=== PATIENT | male | born 1965 | race Caucasian/White ===

== ENCOUNTER 2016-10-11 07:07 | Day surgery (SDC) | payer MEDICARE ==
[~2016-10-11] VITALS: Ht 175.3 cm; Wt 109.4 kg
[2016-10-11 07:45] VITALS: BP 139/96; PULSE 70; TEMP 98.3
[2016-10-11] MEDS ORDERED: NORCO 325 MG-101 TAB PO (07:48)
[2016-10-11] MEDS ORDERED: LEXAPRO 10MG10 MG PO (07:48)
[2016-10-11] MEDS ORDERED: XANAX 1MG1 MG PO (07:49)
[2016-10-11] MEDS ORDERED: LIORESAL 1010 MG/TAB PO (07:49)
[2016-10-11 08:45] VITALS: BP 120/89; PULSE 84; TEMP 98.4
[2016-10-11 09:00] VITALS: BP 120/69; PULSE 78
[2016-10-11 09:15] VITALS: BP 109/79; PULSE 74
[2016-10-11 11:04] VITALS: BP 113/73; PULSE 79
== END 2016-10-11 09:30 | disposition home or self-care (01) ==
LOC: SDCO 07:07
DX: Z12.11 Encounter for screening for malignant neoplasm of colon (principal); K57.30 Diverticulosis of large intestine without perforation or abscess without bleeding; Z87.891 Personal history of nicotine dependence
CPT/HCPCS: J2250; J3010; J7030